=== PATIENT | female | born 1965 | race Caucasian/White ===

== ENCOUNTER → 2017-02-08 | Outpatient (CLI) | payer MEDICARE, OTHER ==
[2017-02-08 18:08] LABS: ALT 21 U/L (9-52); AST 17 U/L (14-36); Alkaline Phosphatase 69 U/L (38-126); Anion Gap 12 mmol/L; Blood Urea Nitrogen 10 mg/dL (7-17); Calcium 10.1 mg/dL (8.4-10.2); Carbon Dioxide 26 mmol/L (22-30); Chloride 104 mmol/L (98-107); Glucose 97 mg/dL (74-99); Non-African American GFR(MDRD) >60 (>60 ml/min/1.73 sqM); Potassium 4.2 mmol/L (3.5-5.1); Sodium 142 mmol/L (137-145); Total Bilirubin 0.6 mg/dL (0.2-1.3); Total Protein 7.3 g/dL (6.3-8.2)
[2017-02-08 18:57] LABS: Vitamin B12 410 pg/mL (239-931)
== END | disposition home or self-care (01) ==
LOC: LABWHC1 17:09
PROVIDERS: ATTEND Internal Medicine Endocrinology, Diabetes & Metabolism
DX: E03.8 Other specified hypothyroidism (principal); E55.9 Vitamin D deficiency, unspecified; E53.8 Deficiency of other specified B group vitamins; R53.83 Other fatigue
CPT/HCPCS: 36415; 80053; 82306; 82533; 82607; 84439; 84443; 84480

== ENCOUNTER → 2017-06-25 | Outpatient (CLI) | payer MEDICARE, OTHER ==
[2017-06-25 13:55] LABS: ALT 26 U/L (9-52); AST 22 U/L (14-36); Alkaline Phosphatase 82 U/L (38-126); Anion Gap 10 mmol/L; Blood Urea Nitrogen 13 mg/dL (7-17); Calcium 9.4 mg/dL (8.4-10.2); Carbon Dioxide 27 mmol/L (22-30); Chloride 105 mmol/L (98-107); Glucose 83 mg/dL (74-99); Non-African American GFR(MDRD) >60 (>60 ml/min/1.73 sqM); Potassium 4.1 mmol/L (3.5-5.1); Sodium 142 mmol/L (137-145); Total Bilirubin 0.7 mg/dL (0.2-1.3); Total Protein 6.9 g/dL (6.3-8.2)
[2017-06-25 14:43] LABS: Vitamin B12 504 pg/mL (239-931)
== END | disposition home or self-care (01) ==
LOC: LABWHC1 12:41
PROVIDERS: ATTEND Internal Medicine Endocrinology, Diabetes & Metabolism
DX: E03.8 Other specified hypothyroidism (principal); E55.9 Vitamin D deficiency, unspecified; E53.8 Deficiency of other specified B group vitamins; R53.83 Other fatigue
CPT/HCPCS: 36415; 80053; 82306; 82533; 82607; 84439; 84443; 84480

== ENCOUNTER → 2018-01-21 | Outpatient (CLI) | payer MEDICARE, OTHER ==
[2018-01-21 17:56] LABS: HCT 49.8 % (34.0-46.0); HGB 15.2 gm/dL (11.4-16.0); MCH 29.2 pg (25.0-35.0); MCHC 30.5 g/dL (31.0-37.0); MCV 95.7 fL (80.0-100.0); Mean Platelet Volume 7.6; Platelet Count 249 k/uL (150-450); RDW 13.9 % (11.5-15.5); WBC 10.8 k/uL (3.8-10.6)
[2018-01-21 18:04] LABS: ALT 19 U/L (9-52); AST 20 U/L (14-36); Albumin 4.7 g/dL (3.5-5.0); Alkaline Phosphatase 89 U/L (38-126); Anion Gap 12 mmol/L; Blood Urea Nitrogen 11 mg/dL (7-17); Calcium 9.8 mg/dL (8.4-10.2); Carbon Dioxide 30 mmol/L (22-30); Chloride 105 mmol/L (98-107); Glucose 102 mg/dL (74-99); Potassium 3.8 mmol/L (3.5-5.1); Sodium 147 mmol/L (137-145); Total Bilirubin 0.5 mg/dL (0.2-1.3); Total Protein 7.6 g/dL (6.3-8.2)
--- NOTE | 2018-01-21 21:41 | XR ---
EXAMINATION TYPE: XR cervical spine comp DATE OF EXAM: 01/21/2018 COMPARISON: 10/09/2010 HISTORY: Neck pain TECHNIQUE: 5 views FINDINGS: There is anterior fusion surgery at C3-4 and C6-7. Vertebra have normal alignment. Posterio r elements appear intact. There are no cervical ribs. Atlantoaxial facet joint is normal. IMPRESSION: Previous surgery. No fracture. No sign of instability. No adverse change compared to old exam.
[2018-01-23 08:14] LABS: Hemoglobin A1C 5.3
== END | disposition home or self-care (01) ==
LOC: LABWHC1 17:21
PROVIDERS: ATTEND Physician Assistant
DX: M54.12 Radiculopathy, cervical region (principal); R73.01 Impaired fasting glucose; R53.83 Other fatigue; E89.0 Postprocedural hypothyroidism; Z98.1 Arthrodesis status
CPT/HCPCS: 36415; 72050; 80053; 83036; 84439; 84443; 84481; 85027

== ENCOUNTER → 2018-04-23 | Outpatient (CLI) | payer MEDICARE ==
[2018-04-23 12:02] LABS: HCT 47.9 % (34.0-46.0); HGB 15.1 gm/dL (11.4-16.0); MCH 30.1 pg (25.0-35.0); MCHC 31.5 g/dL (31.0-37.0); MCV 95.5 fL (80.0-100.0); Mean Platelet Volume 7.3; Platelet Count 223 k/uL (150-450); RBC 5.02 m/uL (3.80-5.40); RDW 13.9 % (11.5-15.5); WBC 10.6 k/uL (3.8-10.6)
[2018-04-23 12:06] LABS: Albumin 4.4 g/dL (3.5-5.0); Calcium 9.7 mg/dL (8.4-10.2); Potassium 4.5 mmol/L (3.5-5.1); Total Bilirubin 0.5 mg/dL (0.2-1.3)
[2018-04-23 12:22] LABS: T4, Free (Free Thyroxine) 0.35 ng/dL (0.78-2.19)
== END | disposition home or self-care (01) ==
LOC: LABWHC1 11:01
PROVIDERS: ATTEND Physician Assistant
DX: E03.9 Hypothyroidism, unspecified (principal); R53.83 Other fatigue; E78.5 Hyperlipidemia, unspecified; Z90.89 Acquired absence of other organs
CPT/HCPCS: 36415; 80053; 80061; 84439; 84443; 84481; 85027

== ENCOUNTER 2023-12-27 06:57 | Day surgery (SDC) | payer MEDICARE, OTHER ==
[~2023-12-27 06:57] MED LIST: LIDOCAINE 1% (10MG/ML) FOR IV START INTRADERMA PRN
--- NOTE | 2023-12-27 07:03 | P.GSHP ---
History of Present Illness H&P Date: 12/27/23 CHIEF COMPLAINT: GERD and colon screen HISTORY OF PRESENT ILLNESS: The patient is a 58-year-old female who presents with gastroesophageal reflux disease and need for colon screen. Upper and lower endoscopy were offered for further evaluation and management. PAST MEDICAL HISTORY: Please see list. PAST SURGICAL HISTORY: Please see list. MEDICATIONS: Please see list. ALLERGIES: Please see list. SOCIAL HISTORY: No illicit drug use FAMILY HISTORY: No reports of Crohn disease or ulcerative colitis. REVIEW OF ORGAN SYSTEMS: CONSTITUTIONAL: No reports of fevers or chills. GI: Denies any blood in stools or constipation. PHYSICAL EXAM: VITAL SIGNS: Stable GENERAL: Well-developed pleasant in no acute distress. HEENT: No scleral icterus. Extraocular movements grossly intact. Moist buccal mucosa. NECK: Supple without lymphadenopathy. CHEST: Unlabored respirations. Equal bilateral excursions. CARDIOVASCULAR: Regular rate and rhythm. Distal 2+ pulses. ABDOMEN: Soft, nondistended. MUSCULOSKELETAL: No clubbing, cyanosis, or edema. ASSESSMENT: 1. Gastroesophageal reflux disease 2. Colon screen. PLAN: 1. 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 Date of last positivie culture/infection: 2009 MDRO Source:: skin Past Surgical History: Appendectomy, Back Surgery, Hysterectomy, Tonsillectomy Additional Past Surgical History / Comment(s): thyroidectomy, cervical spine surgery x 2 - limited range of motion, multiple exploratory laparoscopies, D&C x 7 Past Anesthesia/Blood Transfusion Reactions: No Reported Reaction Additional Past Anesthesia/Blood Transfusion Reaction / Comment(s): difficult IV start Smoking Status: Current every day smoker Medications and Allergies Home Medications Medication Instructions Recorded Confirmed Type Diazepam [Valium] 10 mg PO BID PRN 04/27/12/26/23 History Alkapan 1 tab PO DAILY 12/26/23 History Cyanocobalamin [Vitamin B-12] 1,000 mcg PO DAILY 12/26/23 12/26/23 History Folic Acid 1 mg PO DAILY 12/26/23 12/26/23 History Aleyda Lemon Honey Cayenne Tea 1 dose PO QID 12/26/23 History LORazepam [Ativan] 1 mg PO BID PRN 12/26/23 12/26/23 History Liver Detox 1 tab PO DAILY 12/26/23 History Magnesium 250 mg PO DAILY 12/26/23 12/26/23 History Thyroid, Pork [[place] Thyroid] 30 mg PO DAILY 12/26/23 12/26/23 History Thyroid,Pork [[place] Thyroid] 240 mg PO DAILY 12/26/23 12/26/23 History activated charcoaL 260 mg PO DAILY 12/26/23 12/26/23 History hydrOXYzine pamoate [Vistaril] 25 mg PO TID PRN 12/26/23 12/26/23 History Allergies Allergy/AdvReac Type Severity Reaction Status Date / Time adhesive tape Allergy Rash/Hives Verified 12/26/23 08:33 Latex, Natural Rubber Allergy Rash/Hives Verified 12/26/23 09:30
[2023-12-27] MEDS: LACTATED RINGERS 1,000 ML IV SCH (07:19)
[2023-12-27] MEDS: MIDAZOLAM 2 MG/2 ML VIAL IVP ONE ×2 (07:33→07:46)
[2023-12-27 07:46] VITALS: TEMP 97.1
[2023-12-27 07:51] LABS: Glucose,Whole Blood 93 mg/dL (70-110)
[2023-12-27] MEDS ORDERED: LIDOCAINE 1% INJ 10MG/ML (20 ML MDV) ONE (08:15)
[2023-12-27] MEDS ORDERED: PROPOFOL 10 MG/ML 20 ML VIAL IV ONE (08:15)
--- NOTE | 2023-12-27 09:08 | P.PCN ---
Date of Procedure: 12/27/23 Description of Procedure: PREOPERATIVE DIAGNOSIS: GI bleed POSTOPERATIVE DIAGNOSIS: Tubular adenoma ascending colon, 3 cm Tubular adenoma transverse colon, x 2 Tubular adenoma sigmoid colon Internal hemorrhoids, grade 4 OPERATION: Colonoscopy to the ileocecal valve and appendiceal orifice, cecum Colonoscopy with hot snare polypectomy Colonoscopy with cold forceps biopsy SURGEON: Paige Mott MD. ANESTHESIA: MAC. INDICATIONS: The patient is an 58-year-old female who presents for GI bleed. Benefits and risks were described and informed consent was obtained. DESCRIPTION OF PROCEDURE: The patient had undergone GoLytely prep. The patient had been brought into the operating room and laid in the left lateral decubitus position. After adequate intravenous sedation, the rectum was examined with 2% lidocaine jelly. External hemorrhoids were encountered. The rectal tone was within normal limits. No lesions were palpated in the rectal vault. An Olympus colonoscope was advanced until the cecum, ileocecal valve and appendiceal orifice were clearly viewed. The prep was fair. No sigmoid diverticulosis was encountered. Colonic polyps were found and removed. No evidence of focal colitis was found. Retroflexion of the scope demonstrated grade 4 internal hemorrhoids without active bleeding or inflammation. The colon was desufflated. The patient had tolerated the procedure well. Withdrawal time was over 6 minutes. FINDINGS: Aronchick preparation quality scale 2 (1-5) Internal hemorrhoids, grade 4 External hemorrhoids, grade 4. No arteriovenous malformations. No sigmoid diverticulosis Removal of 5 polyps: - Snare polypectomy ascending colon, 30 mm tubulovillous adenoma, multiple passes, piecemeal resection - Snare polypectomy sigmoid colon x 2, 6 to 8 mm flat villous adenoma - Cold forceps biopsy at transverse colon x 2, 2 to 4 mm polyp. No focal colitis. RECOMMENDATIONS: Given severity of tubular adenomas, recommend repeat colonoscopy 1 year, 2024 Plan - Discharge Summary Discharge Rx Participant: Yes New Discharge Prescriptions: Continue Diazepam [Valium] 10 mg PO BID PRN PRN Reason: Anxiety Magnesium 250 mg PO DAILY Folic Acid 1 mg PO DAILY Thyroid,Pork [[place] Thyroid] 240 mg PO DAILY Liver Detox 1 tab PO DAILY Alkapan 1 tab PO DAILY Cyanocobalamin [Vitamin B-12] 1,000 mcg PO DAILY hydrOXYzine pamoate [Vistaril] 25 mg PO TID PRN PRN Reason: Anxiety Thyroid, Pork [[place] Thyroid] 30 mg PO DAILY LORazepam [Ativan] 1 mg PO BID PRN PRN Reason: Anxiety activated charcoaL 260 mg PO DAILY Aleyda Lemon Honey Cayenne Tea 1 dose PO QID Discharge Medication List Diazepam [Valium] 10 mg PO BID PRN 04/27/15 [History] Alkapan 1 tab PO DAILY 12/26/23 [History] Cyanocobalamin [Vitamin B-12] 1,000 mcg PO DAILY 12/26/23 [History] Folic Acid 1 mg PO DAILY 12/26/23 [History] Aleyda Lemon Honey Cayenne Tea 1 dose PO QID 12/26/23 [History] LORazepam [Ativan] 1 mg PO BID PRN 12/26/23 [History] Liver Detox 1 tab PO DAILY 12/26/23 [History] Magnesium 250 mg PO DAILY 12/26/23 [History] Thyroid, Pork [[place] Thyroid] 30 mg PO DAILY 12/26/23 [History] Thyroid,Pork [[place] Thyroid] 240 mg PO DAILY 12/26/23 [History] activated charcoaL 260 mg PO DAILY 12/26/23 [History] hydrOXYzine pamoate [Vistaril] 25 mg PO TID PRN 12/26/23 [History] Follow up Appointment(s)/Referral(s): Paige Mott MD [STAFF PHYSICIAN] - 01/22/24 9:45 am Patient Instructions/Handouts: *Surgery [facility] - (Anesthesia) Discharge Instructions Outpatient Surgery, Colorectal Polyps (GEN), Gastritis (DC), How to Stop Smoking (DC) Activity/Diet/Wound Care/Special Instructions: Repeat colonoscopy 1 year, 2024 Discharge Disposition: HOME SELF-CARE
--- NOTE | 2023-12-27 09:10 | P.PCN ---
Date of Procedure: 12/27/23 Description of Procedure: PREOPERATIVE DIAGNOSIS: GI bleed Gastroesophageal reflux disease. Morbid obesity. POSTOPERATIVE DIAGNOSIS: Gastroesophageal reflux disease. Morbid obesity. Gastritis with bleeding Diaphragmatic hiatal hernia OPERATION: Esophagogastroduodenoscopy with biopsies along esophagus, antrum and duodenum SURGEON: Paige Mott MD ANESTHESIA: MAC. INDICATIONS: The patient is a 58-year-old female who presents with GI bleed, epigastric pain and reflux disease. Benefits and risks of the procedure were described. Informed consent was obtained. DESCRIPTION: The patient was brought into the endoscopy suite and laid in the left lateral decubitus position. An Olympus gastroscope was passed along the posterior oropharynx down to the distal esophagus where the squamocolumnar junction was encountered at 37 cm from the incisors. The stomach was entered and no bile reflux was found. Additional findings are listed below. Biopsies with cold forceps were obtained of the antrum. The first through third portion of the duodenum was examined. Retroflexion of the scope confirmed Hill grade 2 lower esophageal valve. The squamocolumnar junction demonstrated LA grade B erosive esophagitis. The stomach was desufflated. The patient tolerated the procedure well. FINDINGS: Squamocolumnar junction 37 cm from the incisors. Diaphragmatic hiatus at 37 cm. Hill grade 2 lower esophageal valve. LA grade B erosive esophagitis. Biopsies obtained Biopsies obtained of the duodenum. Chronic gastritis with with bleeding and biopsies obtained. RECOMMENDATIONS: Upper endoscopy as needed. Tobacco cessation counseling advised
[2023-12-27 09:30] LABS: Glucose,Whole Blood 107 mg/dL (70-110)
[2023-12-27 09:59] VITALS: BP 121/74; PULSE 71; RESP 18
== END 2023-12-27 09:52 | disposition home or self-care (01) ==
LOC: ORWHC2ENDO 06:57
PROVIDERS: ATTEND Surgery Plastic and Reconstructive Surgery
DX: D12.3 Benign neoplasm of transverse colon (principal); D12.2 Benign neoplasm of ascending colon; K92.2 Gastrointestinal hemorrhage, unspecified; K64.3 Fourth degree hemorrhoids; K21.9 Gastro-esophageal reflux disease without esophagitis; K44.9 Diaphragmatic hernia without obstruction or gangrene; K31.89 Other diseases of stomach and duodenum; J45.909 Unspecified asthma, uncomplicated; E11.9 Type 2 diabetes mellitus without complications; G47.30 Sleep apnea, unspecified; M79.7 Fibromyalgia; F17.200 Nicotine dependence, unspecified, uncomplicated; Z90.710 Acquired absence of both cervix and uterus; Z90.89 Acquired absence of other organs; Z91.040 Latex allergy status; Z79.890 Hormone replacement therapy; Z79.899 Other long term (current) drug therapy
CPT/HCPCS: 88305; 45385; 43239; J2250; J2001; J2704